=== PATIENT | female | born 1945 | race Caucasian/White ===

== ENCOUNTER 2023-01-28 16:43 | Emergency (ER) | payer MEDICARE, BC ==
[2023-01-28] MEDS ORDERED: Sodium Chloride 0.9% 10 ML Syringe FLUSH PRN (16:54)
[2023-01-28] MEDS ORDERED: Sodium Chloride 0.9% 1,000 ML IV ONE (16:54)
[2023-01-28 17:12] LABS: HEMATOCRIT 36.7 % (34.1-44.9); MEAN CORPUSCULAR HEMOGLOBIN 30.6 pg (25.6-32.2); MEAN CORPUSCULAR HGB CONC 32.4 g/dl (32.2-35.5); MEAN CORPUSCULAR VOLUME 94.3 fl (79.4-94.8); MEAN PLATELET VOLUME 9.1 fl (9.4-12.3); PLATELET COUNT,PLT 247 K/mm3 (182-369); RED BLOOD CELL COUNT 3.89 M/mm3 (3.98-5.22); WHITE BLOOD CELL COUNT,WBC 13.74 K/mm3 (3.98-10.04)
[2023-01-28 17:15] LABS: HEMOGLOBIN 11.9 gm/dl (11.2-15.7)
[2023-01-28 17:27] LABS: INR 1.07; PROTHROMBIN TIME 11.4 SECONDS (9.7-12.0)
[2023-01-28 17:33] LABS: BAND PERCENT MAN 9 % (0-10); BASOPHILS PERCENT MAN 0 (0.1-1.2); EOSINOPHILS PERCENT MAN 0 % (0.7-5.8); LYMPHOCYTES % ATYPICAL MANUAL 0 %; LYMPHOCYTES PERCENT MAN 5 % (20-40); MONOCYTES PERCENT MAN 2 % (2-10)
[2023-01-28 17:34] LABS: ANISOCYTOSIS 1+ SLIGHT; PLATELET COUNT ESTIMATE ADEQUATE
[2023-01-28 17:38] LABS: A/G RATIO 0.7 (1-2); ALBUMIN 3.3 g/dl (3.4-5.0); ANION GAP 14.4 (5-15); BILIRUBIN TOTAL 0.8 mg/dL (0.2-1.0); BUN/CREATININE RATIO 20.6 (14-18); C-REACTIVE PROTEIN 11.5 mg/dL (<1.0); CALCIUM 9.1 mg/dL (8.5-10.1); CREATININE 1.7 mg/dL (0.55-1.02); EST CRCL DRUG DOSING (CG) 28.84 mL/min; POTASSIUM,K 4.4 mEq/L (3.5-5.1)
[2023-01-28 17:44] LABS: LACTIC ACID 0.8 mmol/L (0.4-2.0)
[2023-01-28 19:58] LABS: APPEARANCE,URINE CLEAR (Clear); BILIRUBIN,URINE NEGATIVE (Negative); COLOR,URINE YELLOW (Yellow); GLUCOSE,URINE NEGATIVE (Negative); KETONES,URINE NEGATIVE (Negative); LEUKOCYTE ESTERASE,URINE TRACE (Negative); NITRITE,URINE NEGATIVE (Negative); OCCULT BLOOD,URINE TRACE-LYSED (Negative); PROTEIN,URINE NEGATIVE (Negative); UROBILINOGEN,URINE 0.2 (0.2-1.0)
[2023-01-28 20:10] LABS: CORONAVIRUS COVID-19 NAA NEGATIVE (NEGATIVE); INFLUENZA A NAA NEGATIVE (NEGATIVE); RESPIRATORY SYNCYTIAL VIR NAA NEGATIVE (NEGATIVE)
[2023-01-28 20:26] LABS: RBC,URINE 0-5 /hpf (0-5)
[2023-01-28 20:27] LABS: SQUAMOUS EPITHELIAL CELLS,UR NOT SEEN /hpf (0-5)
[2023-01-28 20:28] LABS: BACTERIA,URINE MANY /hpf (FEW); MUCUS,URINE NOT SEEN /hpf (FEW); WBC CLUMPS,URINE OCCASIONAL /hpf (NOT SEEN)
[2023-01-28] MEDS ORDERED: Aspirin 81 MG Tab.Chew PO STA (20:52)
[2023-01-28] MEDS ORDERED: Heparin Sodium 5,000 Units/ML Vial IVPUSH STA (20:52)
[2023-01-28] MEDS ORDERED: Levofloxacin/Dextrose 5%-Water 750 MG in Premix Bag 1 BAG IV ONE (20:54)
[2023-01-28] MEDS ORDERED: Heparin Sodium/D5W 25,000 UNITS/500 ML BAG IV SCH (21:00)
[2023-01-28 22:35] VITALS: BP 130/42; PULSE 73
== END 2023-01-28 22:32 ==
LOC: JD.ED 16:43
DX: I21.4 Non-ST elevation (NSTEMI) myocardial infarction (principal); N39.0 Urinary tract infection, site not specified; I12.9 Hypertensive chronic kidney disease with stage 1 through stage 4 chronic kidney disease, or unspecified chronic kidney disease; N18.9 Chronic kidney disease, unspecified; E11.22 Type 2 diabetes mellitus with diabetic chronic kidney disease; I25.10 Atherosclerotic heart disease of native coronary artery without angina pectoris; M19.90 Unspecified osteoarthritis, unspecified site; Z87.891 Personal history of nicotine dependence; E66.9 Obesity, unspecified; Z88.8 Allergy status to other drugs, medicaments and biological substances; Z79.82 Long term (current) use of aspirin; Z79.4 Long term (current) use of insulin; Z79.01 Long term (current) use of anticoagulants; Z79.899 Other long term (current) drug therapy; Z20.822 Contact with and (suspected) exposure to COVID-19
CPT/HCPCS: 0241U; 36415; 51701; 71046; 80053; 81001; 83605; 84484; 85007; 85027; 85610; 86140; 87040; 87086; 87088; 87186; 93005; 96361; 96365; 96368; 96375; 99285; A9270; J1644; J1956; J3490; J7030